=== PATIENT | female | born 1985 ===

== ENCOUNTER 2023-03-16 | Outpatient (REF) | payer MEDICAID, SELFPAY ==
[2023-03-27 08:59] LABS: HPV mRNA E6/E7 rflx Not Detected (Not Detected)
== END 2023-03-16 00:01 | disposition home or self-care (01) ==
LOC: HO.HHCL
PROVIDERS: Visit Provider Internal Medicine
DX: Z12.4 Encounter for screening for malignant neoplasm of cervix (principal); Z11.51 Encounter for screening for human papillomavirus (HPV)
CPT/HCPCS: 87624; 88142

== ENCOUNTER 2023-10-06 10:05 | Outpatient (REF) | payer MEDICAID, SELFPAY ==
--- NOTE | ~2023-10-06 | XR_ITS ---
EXAMINATION: XR THORACOLUMBAR SPINE CLINICAL INFORMATION: Pain on the right side of the upper back COMPARISON: None available. TECHNIQUE: AP and lateral views of thoracic spine FINDINGS: The vertebral alignment is normal. No intrinsic bony abnormality. The disc heights and neural foramina are well maintained. The endplates and posterior elements are normal. No fracture or subluxation. The surrounding prevertebral soft tissues are unremarkable. XR/XR thoracic spine 2V IMPRESSION: No compression fractures or subluxations are identified. The disc spaces are preserved. No endplate changes are seen. The prevertebral soft tissues are normal. The foramina are patent.
[2023-10-06 12:16] LABS: Anion Gap 11 (12-20); Blood Urea Nitrogen 14 mg/dL (9-16); Calcium 9.6 mg/dL (8.4-10.2); Carbon Dioxide 28 mmol/L (22-29); Chloride 104 mmol/L (96-108); Cholesterol 122 mg/dL (<200); Estimated Glomerular Filt Rate > 60; Glucose Random 189 mg/dL (60-115); HDL Cholesterol 38 mg/dL (>40); LDL Cholesterol Calculated 53 mg/dL (<100); Potassium 3.4 mmol/L (3.3-5.1); Sodium 140 mmol/L (135-145); Triglycerides 157 mg/dL (<150)
[2023-10-06 12:43] LABS: Creatinine Urine 213.91 mg/dL; Microalbum/Creatinine Ratio Ur 189.3 ug/mg cr (<30)
== END 2023-10-06 10:06 | disposition home or self-care (01) ==
LOC: HO.HHCL 10:05
PROVIDERS: Visit Provider Internal Medicine
DX: I10 Essential (primary) hypertension (principal); M54.9 Dorsalgia, unspecified
CPT/HCPCS: 36415; 72070; 80048; 80061; 82043; 82570

== ENCOUNTER 2024-04-22 11:11 | Outpatient (REF) | payer MEDICAID, SELFPAY ==
[2024-04-22 13:30] LABS: MANUAL DIFF FLAG NO
[2024-04-22 13:39] LABS: Basophils Percent Auto 0.4 % (0-2); Eosinophils Absolute Auto 0.1 X10*3/uL (0.0-0.4); Eosinophils Percent Auto 0.9 % (0-4); Hemoglobin 12.9 g/dl (12.0-16.0); Imm Gran Abs Auto 0.02 X10*3/uL (0.00-0.03); Imm Gran Pct Auto 0.3 % (0.0-0.4); Lymphocytes Absolute Auto 3.1 X10*3/uL (1.2-4.9); Lymphocytes Percent Auto 43.4 % (20-40); Mean Corpuscular HGB Conc 31.5 g/dl (31.0-35.0); Mean Corpuscular Hemoglobin 27.4 pg (27.0-33.0); Mean Corpuscular Volume 87.2 fL (80.0-98.0); Mean Platelet Volume 11.5 fL (9.4-12.3); Monocytes Absolute Auto 0.4 X10*3/uL (0.1-1.2); Neutrophils Absolute Auto 3.5 x10*3/uL (2.0-8.3); Platelet Count 258 X10*3/uL (160-400); Red Cell Distribution Width 15.1 % (11.0-16.0)
[2024-04-22 13:54] LABS: Alanine Aminotransferase 29 U/L (0-31); Albumin Level 4.2 g/dL (3.5-5.0); Alkaline Phosphatase 75 U/L (39-117); Anion Gap 11 (12-20); Aspartate Amino Transferase 21 U/L (5-31); Bilirubin Total 0.2 mg/dL (0.0-1.0); Blood Urea Nitrogen 9 mg/dL (9-16); Calcium 9.4 mg/dL (8.4-10.2); Carbon Dioxide 29 mmol/L (22-29); Chloride 106 mmol/L (96-108); Cholesterol 115 mg/dL (<200); Estimated Glomerular Filt Rate > 60; Glucose Random 109 mg/dL (60-115); HDL Cholesterol 45 mg/dL (>40); LDL Cholesterol Calculated 45 mg/dL (<100); Potassium 4.3 mmol/L (3.3-5.1); Sodium 142 mmol/L (135-145); Total Protein 7.7 g/dL (6.5-8.0); Triglycerides 127 mg/dL (<150)
[2024-04-22 14:14] LABS: Estimated Average Glucose 146 mg/dL; Hemoglobin A1c % 6.7 % (<6.0)
[2024-04-22 14:21] LABS: Reflex LDLD? No
[2024-04-22 16:42] LABS: Creatinine Urine 86.43 mg/dL; Microalbum/Creatinine Ratio Ur 264.9 ug/mg cr (<30)
== END 2024-04-22 11:12 | disposition home or self-care (01) ==
LOC: HO.HHCL 11:11
PROVIDERS: Visit Provider Internal Medicine
DX: E11.65 Type 2 diabetes mellitus with hyperglycemia (principal); I10 Essential (primary) hypertension
CPT/HCPCS: 36415; 80053; 80061; 82043; 82570; 83036; 85025

== ENCOUNTER 2025-03-09 15:35 | Outpatient (REF) | payer MEDICAID, SELFPAY ==
--- OUTSIDE RECORDS SUMMARY | 2025-03-09 15:38 | XMS_ITS | Referral Summary ---
Author Organization [facility] Address [address] [place] [address] Care Team Providers Care Radiology Equipment Servicer Name Role Phone Keisha Vazquez MD Primary Care Provider Allergies No known active allergies Medications NIFEdipine XL (PROCARDIA XL) 60 mg tablet SMARTSI Tablet(s) By Mouth Every Morning 12/23/2022 Active acetaminophen (TYLENOL) 500 mg tablet SMARTSI Tablet(s) By Mouth Every 8 Hours PRN 12/23/2022 Active metFORMIN (GLUCOPHAGE) 500 mg tablet 1,000 mg 2 times a day with meals. 11/27/2022 Active chlorthalidone (HYGROTEN) 25 mg tablet SMARTSI Tablet(s) By Mouth Every Morning 11/13/2022 Active rosuvastatin (CRESTOR) 40 mg tablet SMARTSI Tablet(s) By Mouth Every Night 11/27/2022 Active Freestyle Lite test strips USE 1 TO TEST BLOOD SUGAR TWICE DAILY 12/05/2022 Active FreeStyle Potter Lite meter USE TO TEST BLOOD SUGAR TWICE DAILY 12/05/2022 Active amitriptyline (ELAVIL) 50 mg tablet SMARTSI Tablet(s) By Mouth Every Night Active Invokana 300 mg tablet SMARTSI Tablet(s) By Mouth Every Morning Active Active Problems Problem Noted Date Diagnosed Date Primary hypertension 01/29/2024 Chest pain 01/29/2024 Other hyperlipidemia 01/29/2024 Obesity (BMI 30-39.9) 01/29/2024 Social History Tobacco Use Types Packs/Day Years Used Date Smoking Tobacco: Never Smokeless Tobacco: Never Tobacco Cessation:Counseling Given: Not Answered Comments Unknown Sex and Gender Information Value Date Recorded Sex Assigned at Not on file Legal Sex Female 1:46 PM EDT Gender Identity Not on file Sexual Orientation Not on file Last Filed Vital Signs Vital Sign Reading Time Taken Comments Blood Pressure 119/83 01/29/2024 1:29 PM EDT Pulse 89 01/29/2024 1:29 PM EDT Temperature - - Respiratory Rate 16 12/31/2022 10:26 AM EDT Oxygen Saturation 99% 01/29/2024 1:29 PM EDT Inhaled Oxygen Concentration - - Weight 99.5 kg (219 lb 6.4 oz) 01/29/2024 1:29 P M EDT Height 170.2 cm (5' 7 ) 12/31/2022 10:26 AM EDT Body Mass Index 34.36 12/31/2022 10:26 AM EDT Plan of Treatment Not on file Procedures * Due to [place] [employer] law, this organization might not be sharing negative HIV tests. Procedure Name Priority Date/Time Associated Diagnosis Comments BASIC METABOLIC PANEL Routine 12/31/2022 11:32 AM EDT Essential hypertension from Last 3 Months or Most Recently Relevant to Health Maintenance Results * Due to [place] [employer] law, this organization might not be sharing negative HIV tests. * (ABNORMAL) Basic metabolic panel (12/31/2022 11:32 AM EDT) NA 140 135 - 145 mmol/L 12/31/2022 12:28 PM EDT [facility] K 3.3(L) 3.5 - 5.3 mmol/L 12/31/2022 12:28 PM EDT [facility] Cl 100 97 - 110 mmol/L 12/31/2022 12:28 PM EDT [facility] CO2 33(H) 24 - 32 mmol/L 12/31/2022 12:28 PM EDT [facility] BUN 16 7 - 23 mg/dL 12/31/2022 12:28 PM EDT [facility] Creatinine 0.84 0.50 - 1.20 mg/dL 12/31/2022 12:28 PM EDT [facility] Glucose 136(H) 70 - 99 mg/dL 12/31/2022 12:28 PM EDT [facility] Calcium 9.8 8.7 - 10.7 mg/dL 12/31/2022 12:28 PM EDT [facility] Anion Gap 7 5 - 15 12/31/2022 12:28 PM EDT [facility] eGFR >90 >=90 mL/min/1. 73m2 12/31/2022 12:28 PM EDT [facility] Comment: Estimated Glomerular Filtration Rate (GFR) calculated using the CKD-EPI refit equation. The different stages of CKD form a continuum. The stages of CKD are classified as follows : Stage 1: Normal or increased GFR (>90 mL/min/1.73 m2) Stage 2: Mild reduction in GFR (60-89 mL/min/1.73 m2) Stage 3a: Moderate reduction in GFR (45-59 mL/min/1.73 m2) Stage 3b: Moderate reduction in GFR (30-44 mL/min/1.73 m2) Stage 4: Severe reduction in GFR (15-29 mL/min/1.73 m2) Stage 5: Kidney failure (GFR < 15 mL/min/1.73 m2 or dialysis) Blood Structure of peripheral vein / Unknown Venipuncture / Unknown 12/31/2022 11:32 AM EDT 12/31/2022 11:50 AM EDT us Marc Madrid MD LAB BLOOD ORDERABLES Final Res ult [facility] [address] [place] [address], from Last 3 Months or Most Recently Relevant to Health Maintenance Insurance [place] [id number] Care Teams Radiology Equipment Servicer Relationship Specialty Start Date End Date Keisha Vazquez MD [address] [place] [id number] PCP - General Internal Medicine 12/31/22
--- OUTSIDE RECORDS SUMMARY | 2025-03-09 15:38 | XMS_ITS | Encounter Summary ---
Author Organization [employer] [facility] Address [address] [place] [address] Care Team Providers Care Analog Design Engineer Name Role Phone Keisha Vazquez MD Primary Care Provide r Reason for Visit * Reason Comments Med Refill Encounter Details Date Type Department Care Team (Late st Contact Info) Description 01/10/2023 Refill [facility] [address] [place] [address] Christel Renner FNP [address] [place] [address] Social History Tobacco Use Types Packs/Day Years Used Date Smoking Tobacco: Never Passive Smoke Exposure: Never Smokeless Tobacco: Never Alcohol Use Standard Drinks/Week Comments Never 0 (1 standard drink = 0.6 oz pur e alcohol) Depression Answer Date Recorded Patient Health Questionnaire-9 Score 0 12/16/2022 Depression Answer Date Recorded Patient Health Questionnaire-2 Score 0 12/16/2022 Comments Unknown Sex and Gender Information Value Date Recorded Sex Assigned at Female 11/03/2022 4:29 PM EST Legal Sex Female 2:46 PM EST Gender Identity Female 11/03/2022 4:29 PM EST Sexual Orientation Straight 11/03/2022 4: 29 PM EST COVID-19 Exposure Response Date Recorded In the last 10 days, have yo u been in contact with someone who was confirmed or suspected to have Coronavirus/COVID-19? No / Unsure 12/16/2022 10:14 AM EDT documented as of this encounter Plan of Treatment Not on file documented as of this encounter Visit Diagnoses Not on filedocumented in this encounter Additional Health Concerns Assessment Noted Time PHQ-9 Depression Total Score: 0 12/17/19 23 10:30 AM EDT documented as of this encounter Care Teams Analog Design Engineer Relationship Specialty Start Date End Date Keisha Vazquez MD [address] [place] [address] PCP - General Internal Medicine 12/04/22 documented as of this encounter
[2025-03-09 17:00] LABS: Microalbum/Creatinine Ratio Ur 122.7 ug/mg cr (<30)
[2025-03-09 17:04] LABS: Alanine Aminotransferase 46 U/L (0-31); Albumin Level 4.3 g/dL (3.5-5.0); Alkaline Phosphatase 77 U/L (39-117); Anion Gap 10 (12-20); Aspartate Amino Transferase 41 U/L (5-31); Blood Urea Nitrogen 14 mg/dL (9-16); Calcium 9.4 mg/dL (8.4-10.2); Carbon Dioxide 31 mmol/L (22-29); Chloride 101 mmol/L (96-108); Cholesterol 139 mg/dL (<200); Estimated Glomerular Filt Rate > 60; HDL Cholesterol 45 mg/dL (>40); Potassium 3.3 mmol/L (3.3-5.1); Sodium 139 mmol/L (135-145); Total Protein 7.4 g/dL (6.5-8.0); Triglycerides 207 mg/dL (<150)
== END 2025-03-09 15:36 | disposition home or self-care (01) ==
LOC: HO.HHCL 15:35
PROVIDERS: PCP Internal Medicine; Visit Provider Internal Medicine
DX: E11.65 Type 2 diabetes mellitus with hyperglycemia (principal)
CPT/HCPCS: 36415; 80053; 80061; 82043; 82570